=== PATIENT | female | born 1965 | race Caucasian/White ===

== ENCOUNTER → 2024-02-11 10:27 | Outpatient (REF) | payer BC, SELFPAY | LOC: HWWDC 10:27 | PROVIDERS: ATTENDING PHYSICIAN Obstetrics & Gynecology Gynecology; FAMILY PHYSICIAN Family Medicine | DX: Z12.31 Encounter for screening mammogram for malignant neoplasm of breast (principal) | CPT/HCPCS: 77063; 77067 ==

== ENCOUNTER → 2025-02-22 13:15 | Outpatient (REF) | payer OTHER, SELFPAY | LOC: HWWDC 13:15 | PROVIDERS: ATTENDING PHYSICIAN Obstetrics & Gynecology Gynecology; FAMILY PHYSICIAN Family Medicine | DX: Z85.3 Personal history of malignant neoplasm of breast (principal); Z12.31 Encounter for screening mammogram for malignant neoplasm of breast | CPT/HCPCS: 77063; 77067 ==

== ENCOUNTER 2025-06-10 01:38 | Emergency (ER) | payer OTHER, SELFPAY ==
--- NOTE | 2025-06-10 01:39 | ED.SKININJ ---
HPI-Injury
General
Chief Complaint: Bite
Source: patient
Exam Limitations: none
Time Seen by Provider: 06/10/25 01:07 EST
Nursing documentation reviewed up to this point in time: agreed with
History of Present Illness-Injury
Initial Injury comments:
Note:
CHIEF COMPLAINT(S)
- Lacerations and scratches on the face and eyelid due to a cat scratch.
HISTORY OF PRESENT ILLNESS
The patient is a 60-year-old male who presented with facial lacerations and a scratch on the left eyelid incurred earlier today from his newly adopted 2.5-year-old cat. The patient reported the injuries were from the cats claws, not bites,
indicating 'It was a paw action.' He expressed concern particularly for the eye, noting 'it hurts,' but stated 'its not horrible.' The scratch on the eyelid is described as superficial. The patient has no associated problems with teeth or nose
following this incident.
The patient did not report any additional injuries despite witnessing some cat skirmishes at home. He mentioned his last tetanus shot was possibly years ago and could not recall the exact timing. Eye examination showed a scratch visible using
fluorescein dye and black light. No signs of penetration were observed, indicating no serious ocular injury. The patient has no history of contact lens use, which aids in preventing further complications. He was advised about the importance of
keeping the area clean, emphasizing cleaning extensively within the bathtub if accessible at home.
PAST MEDICAL AND SURIGICAL HISTORY
The patient is allergic to sulfa drugs, noting reactions that might be indicative of urinary tract infection sequelae.
SOCIAL HISTORY
The patient mentions he has another cat and expressed some humor in naming the new cat.
PHYSICAL EXAM
General: Alert, no acute distress.
Skin: Warm, dry, superficial scratches and lacerations present on the face and left eyelid.
Eye Ears, nose, mouth and throat: Superficial scratch visible on the left eyelid, confirmed corneal scratch with fluorescein dye test, no ocular puncture, oral mucosa moist.
Neurological: Alert and appropriately oriented to person, place, time, and situation.
Psychiatric: Cooperative, appropriate mood and affect.
PROBLEM LIST
- Acute: Facial lacerations and eyelid scratch from a cat.
PLAN
1. Prescribe antibiotics (Augmentin preferred unless contraindicated) to prevent bacterial infection.
2. Administer tetanus booster vaccination.
3. Prescribe antibiotic eye drops and administer to alleviate corneal scratch and prevent infection.
4. Advise extensive cleaning of the scratches, ideally through soaking in a bathtub if feasible.
5. Follow-up if symptoms worsen or do not improve within a few days.
DIFFERENTIAL DIAGNOSIS
The Differential Diagnosis includes, in no particular order and is not limited to:
1. Facial laceration
2. Corneal abrasion
3. Soft tissue infection
4. Ocular foreign body
5. Blepharitis
6. Preseptal cellulitis
7. Orbital cellulitis
8. Traumatic conjunctivitis
9. Eyelid laceration
10. Superficial punctate keratitis
Disposition:
SUMMARY OF ENCOUNTER
A 60-year-old female presented with scratches to her scalp and forehead, as well as a left eye corneal abrasion, following an incident with a newly adopted cat. The lacerations on her face and left eye were superficial and resembled abrasions rather
than deep cuts. A corneal abrasion was confirmed on examination of her left eye. The decision was made to administer a tetanus booster, start the patient on antibiotics to prevent bacterial infection, and prescribe ophthalmic antibiotic drops
specifically for the corneal abrasion to prevent further complications.
DISPOSITION
Discharge
ASSESSMENT
Patient has superficial lacerations and a left eye corneal abrasion due to a cat scratch.
PLAN
1. Administer a tetanus booster.
2. Start antibiotic therapy with amoxicillin-clavulanate.
3. Prescribe antibiotic eye drops for the corneal abrasion.
4. Discharge home with instructions for care.
PATIENT EDUCATION AND COUNSELING
The patient was educated on the importance of keeping the scratches clean to prevent infection. The use of antibiotic eye drops was explained to manage the corneal abrasion. The patient was advised to monitor for any worsening symptoms and to follow
up with their primary care provider if symptoms persist or worsen.
FOLLOW-UP INSTRUCTIONS
The patient was advised to follow up with their primary care provider if there is no improvement within a few days or if symptoms worsen.
MEDICATION RECONCILIATION
- Tetanus booster administered.
- Prescription for amoxicillin-clavulanate.
- Antibiotic eye drops prescribed for the corneal abrasion.
MEDICAL DECISION MAKING
- Complexity of Data Reviewed:
Differential Diagnosis: Facial laceration, Corneal abrasion, Soft tissue infection, Ocular foreign body, Blepharitis, Preseptal cellulitis, Orbital cellulitis, Traumatic conjunctivitis, Eyelid laceration, Superficial punctate keratitis.
- Data:
Category 1:
Reviewed the patients condition related to the incident with the cat.
- Risk:
Prescription medication was prescribed, including antibiotics and ophthalmic drops, to manage infection risk and complications from the corneal abrasion.
DIAGNOSIS
1. Superficial facial laceration due to cat scratch, ICD-10 S01.81XA
2. Corneal abrasion of the left eye, ICD-10 S05.01XA
Past History
Past History
ED Past Medical History: Cancer (Breast cancer) and Other (Chronic back pain)
ED Past Surgical History: Gynecological (Lumpectomy, left breast 2002)
Social History
Alcohol: Daily
Personal: Single
Living: alone
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
Phy Exam
Physical Exam
Physical Exam:
.
Course
Orders/Labs/Results
Orders:
Orders
06/10/25 01:37
Amoxicillin 875 mg/Clav 125 mg [Augmentin 875 mg/125 mg] 1 tablet PO NOW STA
06/10/25 01:38
Gentamicin [Genoptic 0.3% Eye Drops] See Dose Instructions OPHTH NOW STA
Tetanus/Diphth/Acelpertussis [Adacel] 0.5 ml IM .ONCE ONE
06/10/25 01:42
Tetracaine HCl [Tetracaine 0.5% Ophthalmic Solution] 1 drop .ROUTE .STK-MED ONE
06/10/25 01:43
Fluorescein Sodium [Ful-Carmelina] 1 mg .ROUTE .STK-MED ONE
Vital Signs
Initial and Last Documented VS:
Initial Vital Signs
Temp Pulse Resp BP Pulse Ox
98 F 103 18 126/91 98
06/10/25 01:40 EDT 06/10/25 01:40 EDT 06/10/25 01:40 EDT 06/10/25 01:40 EDT 06/10/25 01:40 EDT
Last Documented Vital Signs
Temp Pulse Resp BP Pulse Ox
98 F 86 16 118/93 98
06/10/25 01:40 EDT 06/10/25 02:20 06/10/25 02:20 06/10/25 02:20 06/10/25 02:20
*Pulse Oximetry
SaO2: 98
Oxygen Mode of Delivery: Room air
Patient hypoxic: no
*Critical Care Note
Total Time (30-74mins, 75-104mins- exclusive of procedures): Not Applicable
ED Attending Note
-
Portions of this chart may have been created with voice recognition software.� Occasional wrong word or��sound alike� substitutions may have occurred due to the inherent limitations of voice recognition software.
Discharge Plan
Departure
Patient Disposition: Home (Routine Discharge)
Date of Disposition: 06/10/25
Time of Disposition: 01:40
Patient with high blood pressure during this ER visit?: Yes
Discharge Problem:
Abrasion, corneal, Abrasion of scalp, Abrasion of eyelid, Cat scratch of face
Instructions: Wound care - ED (DC), Abrasions - ED (DC), Corneal abrasion - ED (DC)
Prescriptions:
New
amoxicillin-pot clavulanate 875-125 mg tablet
1 tab PO BID Qty: 20 0RF
No Action
losartan 50 MG tablet
50 mg PO DAILY
escitalopram oxalate 10 MG tablet
10 mg PO DAILY
amoxicillin-pot clavulanate 1 TABLET tablet
1 tab PO Q12 Qty: 14 0RF
amoxicillin-pot clavulanate 1 TABLET tablet
1 tab PO Q12 Qty: 14 0RF
Referrals:
Alfonzo Singleton MD [[facility]]
Activity Restrictions/Additional Instructions:
Your prescriptions were sent electronically to the pharmacy that you specified.
Thank You for choosing [facility].
It was a pleasure meeting you and taking part in your care. We hope for your continued healing and wellness.
Please read discharge instructions in their entirety. However, they are for general education and may not describe your exact diagnosis at discharge. Information on your ER visit and medical conditions were discussed with you along with appropriate
follow up information...
If indicated, please take your medications as instructed and indicated on discharge paperwork.
Please schedule a follow up appointment as directed. Call to schedule an appointment
Please return to the emergency department with ANY change in, persisting, or worsening of symptoms. If any of your symptoms do not improve, or persist, or become more severe within 6-12 hours, please return to the emergency department for further
care.
Please return to the emergency department if you develop a headache, neck pain/stiffness, fever greater than 100.4F, chest pain, shortness of breath, persistent nausea, vomiting, slurred speech, difficulty walking, numbness/tingling, weakness, signs
of infection or any other symptoms that are worrisome to you.
If you have any questions or concerns please do not hesitate to call the Hospital at .
Interventions
Interventions:
*Risk Screen - Suicide Last Done: 06/10/25 01:40
*General Assessment Last Done: 06/10/25 01:40
*Neglect/Abuse Screening Last Done: 06/10/25 01:40
*ED- Fall Risk Assessment Last Done: 06/10/25 01:25
*ED COVID-19 Vaccine History Last Done: 06/10/25 01:25
*ED Influenza Vaccine History Last Done: 06/10/25 01:25
*Nursing Disposition Last Done: 06/10/25 02:20
ED-Skin Assessment Last Done: 06/10/25 01:25
Discharge Date and Time
Discharge Date/Time: 06/10/25 02:20
Print Language: [id number]
[2025-06-10 01:40] VITALS: BP 126/91
[2025-06-10] MEDS: AUGMENTIN 875 MG/125 MG 1 TABLET PO (01:49)
[2025-06-10] MEDS: ADACEL 0.5 ML IM (01:55)
[2025-06-10] MEDS: GENOPTIC 0.3% EYE DROPS 1 DROP OPHTH (01:58)
[2025-06-10 02:20] VITALS: BP 118/93
== END 2025-06-10 02:20 | disposition home or self-care (01) ==
LOC: EMR 01:38
PROVIDERS: EMERGENCY PHYSICIAN Student in an Organized Health Care Education/Training Program; FAMILY PHYSICIAN Family Medicine
DX: S05.02XA Injury of conjunctiva and corneal abrasion without foreign body, left eye, initial encounter (principal); S00.01XA Abrasion of scalp, initial encounter; W55.03XA Scratched by cat, initial encounter; Z88.2 Allergy status to sulfonamides; Z23 Encounter for immunization
CPT/HCPCS: 90471; 99283; 90715

== ENCOUNTER → 2025-08-01 07:55 | Outpatient (REF) | payer OTHER, SELFPAY | LOC: HWRAD 07:55 | PROVIDERS: ATTENDING PHYSICIAN Family Medicine; FAMILY PHYSICIAN Family Medicine | DX: R74.01 Elevation of levels of liver transaminase levels (principal) | CPT/HCPCS: 76700 ==